=== PATIENT | male | born 1940 | race Caucasian/White ===

== ENCOUNTER 2021-01-14 23:11 | Observation (INO) | payer MEDICARE ==
[2021-01-14] MEDS ORDERED: Albuterol 0.083% 2.5 MG/3 ML Neb Soln NEB ONE (23:14)
[2021-01-14] MEDS ORDERED: Ipratropium 0.02% 0.5 MG/2.5 ML Neb Soln NEB ONE (23:15)
--- NOTE | 2021-01-14 23:33 | EDM.PDOC ---
ED HPI GENERAL MEDICAL PROBLEM - General Chief Complaint: Respiratory Problem Stated Complaint: AMBULANCE Time Seen by Provider: 01/14/21 23:30 Source of Information: Reports: Patient, EMS History Limitations: Reports: No Limitations - History of Present Illness INITIAL COMMENTS - FREE TEXT/NARRATIVE: Patient is a unfortunate 80-year-old male who presents emerged part today with complaint of shortness of breath. The patient reports that he was in his normal state of health until 4 days ago when he reports that he started having increasing cough and shortness of breath. The patient reports that 2 days ago he went to the clinic and was diagnosed with pneumonia he reports that at that time he was placed on amoxicillin and Zithromax. The patient reports that he was started feeling a little bit better and then this evening his shortness of breath worsen reports he took multiple breathing treatments this evening with no improvement in symptoms so became concerned and called EMS who arrived at the house and noted he was 91% on room air, the patient was placed on oxygen and his oxygen saturation promptly improved he reported an improvement in his dyspnea with oxygen therapy only and the patient was transported to the emergency department for further evaluation, upon arrival to the emergency department the patient is not retracting or using any accessory muscles he is mildly tachypneic and has diffuse end expiratory wheezing in the lower bases bilaterally the patient reports he was tested for Covid 2 days ago was negative, he also reports that he has been vaccinated against Covid - Related Data Allergies Allergy/AdvReac Type Severity Reaction Status Date / Time No Known Allergies Allergy Verified 01/14/21 23:32 ED ROS GENERAL - Review of Systems Review Of Systems: See Below Constitutional: Denies: Fever, Chills Respiratory: Reports: Shortness of Breath, Wheezing, Cough, Sputum ED EXAM, GENERAL - Physical Exam Exam: See Below Exam Limited By: No Limitations General Appearance: Alert, WD/WN, Mild Distress Neck: Normal Inspection, Supple, Non-Tender, Full Range of Motion Respiratory/Chest: No Respiratory Distress, No Accessory Muscle Use, Chest Non- Tender, Wheezing (Mild end expiratory bibasilar) Cardiovascular: Normal Peripheral Pulses, Regular Rate, Rhythm, No Edema, No Gallop, No JVD, No Murmur, No Rub GI/Abdominal: Normal Bowel Sounds, Soft, Non-Tender, No Organomegaly, No Distention, No Abnormal Bruit, No Mass Back Exam: Normal Inspection, Full Range of Motion, NT Extremities: Normal Inspection, Normal Range of Motion, Non-Tender, Normal Capillary Refill, No Pedal Edema Neurological: Alert, Oriented Skin Exam: Warm, Dry, Intact Course - Vital Signs Text/Narrative:: Case was discussed with Dr. Sheehan who asks that we give Solu-Medrol and observe the patient for several more hours and reevaluate Case was discussed again with Dr. Sheehan, the patient is above the normal oxygen requirements and has received Solu-Medrol and multiple neb treatments the patient was placed into observation Last Recorded V/S: Last Vital Signs Temp 97.3 F 01/14/21 23:20 Pulse 94 01/15/21 01:01 Resp 18 01/15/21 01:01 BP 130/68 01/15/21 01:01 Pulse Ox 91 L 01/15/21 01:01 - Orders/Labs/Meds Orders: Active Orders 24 hr Category Date Time Status RT Aerosol Therapy [RC] ASDIRECTED Care 01/14/21 23:14 Active RT Aerosol Therapy [RC] ASDIRECTED Care 01/15/21 00:18 Active RT Aerosol Therapy [RC] ASDIRECTED Care 01/15/21 02:13 Active RT Post Treatment Assessment [RC] Click to Edit Care 01/14/21 23:15 Active RT Pre-Treatment Assessment [RC] Click to Edit Care 01/14/21 23:15 Active CULTURE BLOOD [BC] Stat Lab 01/14/21 23:20 Results CULTURE BLOOD [BC] Stat Lab 01/14/21 23:30 Received UA RFX HELIO AND CULT IF INDIC [URIN] Stat Lab 01/14/21 23:15 Ordered Sodium Chloride 0.9% [Saline Flush] Med 01/14/21 23:15 Active 10 ml FLUSH ASDIRECTED PRN Blood Culture x2 Reflex Set [OM.PC] Stat Oth 01/14/21 23:16 Ordered Saline Lock Insert [OM.PC] Stat Oth 01/14/21 23:15 Ordered Medication Orders Sodium Chloride (Sodium Chloride 0.9% 10 Ml Syringe) 10 ml FLUSH ASDIRECTED PRN PRN Reason: Keep Vein Open Last Admin: 01/15/21 01:35 Dose: 10 ml Documented by: Admin: 01/14/21 23:45 Dose: 10 ml Documented by: Admin: 01/14/21 23:42 Dose: 10 ml Documented by: [email or web address] Labs: Laboratory Tests 01/14/21 01/14/21 01/14/21 Range/Units 23:20 23:20 23:20 WBC 11.2 H (5.0-10.0) 10^3/uL RBC 4.63 (4.6-6.2) 10^6/uL Hgb 14.4 (14.0-18.0) g/dL Hct 42.5 (40.0-54.0) % MCV 91.8 (80-100) fL MCH 31.1 (27.0-34.0) pg MCHC 33.9 (33.0-35.0) g/dL Plt Count 233 (150-450) 10^3/uL Neut % (Auto) 89.1 H (42.2-75.2) % Lymph % (Auto) 2.9 L (20.5-50.1) % Alcorn % (Auto) 6.2 (2-8) % Eos % (Auto) 1.6 (1.0-3.0) % Baso % (Auto) 0.2 (0.0-1.0) % ABG pH (7.35-7.45) ABG pCO2 (35-45) mmHg ABG pO2 (70-100) mmHg ABG HCO3 (22-26) mmol/L ABG O2 Saturation (95-100) % ABG Base Excess ((-2)-(+3)) mmol/L Tino Test O2 Delivery Device Sodium 137 (136-145) mmol/L Potassium 3.6 (3.5-5.1) mmol/L Chloride 99 (98-107) mmol/L Carbon Dioxide 31 (21-32) mmol/L Anion Gap 10.6 (7-13) mEq/L BUN 15 (7-18) mg/dL Creatinine 0.97 (0.70-1.30) mg/dL Est Cr Clr Drug Dosing 66.85 mL/min Estimated GFR (MDRD) > 60 BUN/Creatinine Ratio 15.5 (No establ ref range) Glucose 108 H (70-99) mg/dL Lactic Acid (0.4-2.0) mmol/L Calcium 8.3 L (8.5-10.1) mg/dL Total Bilirubin 0.4 (0.2-1.0) mg/dL AST 19 (15-37) U/L ALT 39 (16-63) U/L Alkaline Phosphatase 58 (46-116) U/L Troponin I High Sens 10 (<=76) pg/mL B-Natriuretic Peptide 21 (0-100) pg/ml Total Protein 6.0 L (6.4-8.2) g/dL Albumin 2.6 L (3.4-5.0) g/dL Globulin 3.4 Albumin/Globulin Ratio 0.76 SARS-CoV-2 RNA (JASWINDER) Negative (NEGATIVE) 01/14/21 01/15/21 Range/Units 23:20 01:10 WBC (5.0-10.0) 10^3/uL RBC (4.6-6.2) 10^6/uL Hgb (14.0-18.0) g/dL Hct (40.0-54.0) % MCV (80-100) fL MCH (27.0-34.0) pg MCHC (33.0-35.0) g/dL Plt Count (150-450) 10^3/uL Neut % (Auto) (42.2-75.2) % Lymph % (Auto) (20.5-50.1) % Alcorn % (Auto) (2-8) % Eos % (Auto) (1.0-3.0) % Baso % (Auto) (0.0-1.0) % ABG pH 7.46 H (7.35-7.45) ABG pCO2 43 (35-45) mmHg ABG pO2 71 (70-100) mmHg ABG HCO3 30.0 H (22-26) mmol/L ABG O2 Saturation 93 L (95-100) % ABG Base Excess 6 H ((-2)-(+3)) mmol/L Tino Test Positive O2 Delivery Device Nasal cannula Sodium (136-145) mmol/L Potassium (3.5-5.1) mmol/L Chloride (98-107) mmol/L Carbon Dioxide (21-32) mmol/L Anion Gap (7-13) mEq/L BUN (7-18) mg/dL Creatinine (0.70-1.30) mg/dL Est Cr Clr Drug Dosing mL/min Estimated GFR (MDRD) BUN/Creatinine Ratio (No establ ref range) Glucose (70-99) mg/dL Lactic Acid 0.7 (0.4-2.0) mmol/L Calcium (8.5-10.1) mg/dL Total Bilirubin (0.2-1.0) mg/dL AST (15-37) U/L ALT (16-63) U/L Alkaline Phosphatase (46-116) U/L Troponin I High Sens (<=76) pg/mL B-Natriuretic Peptide (0-100) pg/ml Total Protein (6.4-8.2) g/dL Albumin (3.4-5.0) g/dL Globulin Albumin/Globulin Ratio SARS-CoV-2 RNA (JASWINDER) (NEGATIVE) Meds: Medications Generic Name Dose Route Start Last Admin Trade Name Freq PRN Reason Stop Dose Admin Sodium Chloride 10 ml 01/14/21 23:15 01/15/21 01:35 Sodium Chloride 0.9% 10 Ml Syringe FLUSH 10 ml ASDIRECTED PRN Administration Keep Vein Open Discontinued Medications Generic Name Dose Route Start Last Admin Trade Name Freq PRN Reason Stop Dose Admin Albuterol 1.25 mg 01/14/21 23:14 01/14/21 23:22 Albuterol 0.083% 2.5 Mg/3 Ml Neb Soln [facility] 01/14/21 23:15 2.5 mg ONETIME ONE Administration Albuterol/Ipratropium 3 ml 01/15/21 00:18 01/15/21 00:25 Albuterol/Ipratropium 3.0-0.5 Mg/3 Ml Neb Soln [facility] 01/15/21 00:19 3 ml ONETIME ONE Administration Albuterol/Ipratropium 3 ml 01/15/21 02:12 01/15/21 02:17 Albuterol/Ipratropium 3.0-0.5 Mg/3 Ml Neb Soln [facility] 01/15/21 02:13 3 ml ONETIME ONE Administration Ipratropium [place] 0.5 mg 01/14/21 23:15 01/14/21 23:20 Ipratropium 0.02% 0.5 Mg/2.5 Ml Neb Soln NEB 01/14/21 23:16 Not Given ONETIME ONE Methylprednisolone Sodium Succinate 125 mg 01/15/21 01:27 01/15/21 01:34 Methylprednisolone Sodium Succinate 125 Mg/2 Ml Sdv IVPUSH 01/15/21 01:28 125 mg ONETIME ONE Administration Departure - Departure Time of Disposition: 03:31 Disposition: Refer to Observation Clinical Impression: COPD exacerbation - Discharge Information *PRESCRIPTION DRUG MONITORING PROGRAM REVIEWED*: No *COPY OF PRESCRIPTION DRUG MONITORING REPORT IN PATIENT VITOR: No Forms: ED Department Discharge Sepsis Event Note (ED) - Focused Exam Vital Signs: Vital Signs Temp Pulse Resp BP Pulse Ox 01/15/21 01:01 94 18 130/68 91 L 01/14/21 23:20 97.3 F 95 30 H 113/61 93 L - My Orders Last 24 Hours: My Active Orders 01/14/21 23:14 RT Aerosol Therapy [RC] ASDIRECTED 01/14/21 23:15 RT Post Treatment Assessment [RC] Click to Edit RT Pre-Treatment Assessment [RC] Click to Edit UA RFX HELIO AND CULT IF INDIC [URIN] Stat Sodium Chloride 0.9% [Saline Flush] 10 ml FLUSH ASDIRECTED PRN Saline Lock Insert [OM.PC] Stat 01/14/21 23:16 Blood Culture x2 Reflex Set [OM.PC] Stat 01/14/21 23:20 CULTURE BLOOD [BC] Stat 01/14/21 23:30 CULTURE BLOOD [BC] Stat 01/15/21 00:18 RT Aerosol Therapy [RC] ASDIRECTED 01/15/21 02:13 RT Aerosol Therapy [RC] ASDIRECTED - Assessment/Plan Last 24 Hours: My Active Orders 01/14/21 23:14 RT Aerosol Therapy [RC] ASDIRECTED 01/14/21 23:15 RT Post Treatment Assessment [RC] Click to Edit RT Pre-Treatment Assessment [RC] Click to Edit UA RFX HELIO AND CULT IF INDIC [URIN] Stat Sodium Chloride 0.9% [Saline Flush] 10 ml FLUSH ASDIRECTED PRN Saline Lock Insert [OM.PC] Stat 01/14/21 23:16 Blood Culture x2 Reflex Set [OM.PC] Stat 01/14/21 23:20 CULTURE BLOOD [BC] Stat 01/14/21 23:30 CULTURE BLOOD [BC] Stat 01/15/21 00:18 RT Aerosol Therapy [RC] ASDIRECTED 01/15/21 02:13 RT Aerosol Therapy [RC] ASDIRECTED
[2021-01-14] MEDS: Sodium Chloride 0.9% 10 ML Syringe FLUSH PRN ×2 (23:42→23:45)
[2021-01-14 23:45] LABS: ANION GAP 10.6 mEq/L (7-13); CHLORIDE,CL 99 mmol/L (98-107); SODIUM,NA 137 mmol/L (136-145)
[2021-01-15] MEDS ORDERED: Albuterol/Ipratropium 3.0-0.5 MG/3 ML Neb Soln NEB ONE ×2 (00:18→02:12)
--- NOTE | 2021-01-15 00:22 | CR ---
PROCEDURE INFORMATION: Exam: XR Chest Exam date and time: 01/14/2021 11:54 PM Age: 80 years old Clinical indication: Cough and shortness of breath and other: HX copd TECHNIQUE: Imaging protocol: XR of the chest. Views: 2 views. COMPARISON: No relevant prior studies available. FINDINGS: Lungs: The lungs are hyperinflated. Bibasilar linear opacities likely represent scarring or discoid atelectasis. Diffuse bilateral fine reticular pulmonary opacities. Possible patchy superimposed opacities in left mid lung. Pleural spaces: Unremarkable. No pleural effusion. No pneumothorax. Heart/Mediastinum: Heart size is within normal limits. Tortuous, atherosclerotic thoracic aorta. Bones/joints: No evidence of acute osseous abnormality. IMPRESSION: Findings are compatible with COPD. Possible superimposed acute airspace disease in the left lung.
[2021-01-15 01:23] LABS: O2 DELIVERY DEVICE NASAL CANNULA
[2021-01-15 01:24] LABS: ALLEN TEST POSITIVE; BASE EXCESS ARTERIAL 6 mmol/L ((-2)-(+3)); O2 SATURATION ARTERIAL 93 % (95-100); PCO2 ARTERIAL 43 mmHg (35-45); PO2 ARTERIAL 71 mmHg (70-100)
[2021-01-15] MEDS ORDERED: methylPREDNISolone Sodium Succinate 125 MG/2 ML SDV IVPUSH ONE (01:27)
[2021-01-15] MEDS: Sodium Chloride 0.9% 10 ML Syringe FLUSH PRN (01:35)
--- NOTE | 2021-01-15 04:00 | PCM.SN.2 ---
- Free Text/Narrative Note: START OF DOCTOR EMAMIS HISTORY AND PHYSICAL / CONSULTATION NOTE Chief Complaint: Shortness of breath History of Present Illness: The patient is a 72-year-old male who presents with chief complaint of dyspnea. He states he started exhibiting dyspnea approximately 3 weeks prior to hospitalization. At that point time he sought medical care and received prescription for prednisone taper. He indicates that he had a recurrence of dyspnea 2 days prior to hospitalization. At that point time he sought treatment and received prescription for antibiotics. Since that time he developed fever, rigors, cough productive of white sputum, wheeze. He denies nausea, vomiting, abdominal pain, diarrhea, myalgia, anosmia, dysgeusia. Upon questioning he indicates that he is an minor bipedal edema secondary to prednisone. Patient has known history of COPD for which she is O2 dependent 2 L however over the last couple of days he has had to increase his oxygen demand to 4 L/min. He presents for further evaluation Surgical History: Right inguinal herniorrhaphy, umbilical herniorrhaphy, surgery for small bowel obstruction Family History: Cancer, stroke, diabetes Social History: Tobacco: Former smoker Alcohol: Rare Caffeine: Coffee Drugs: Never Allergies: No known drug allergies Code Status: DNR, DNI Pertinent Laboratory Results / Pertinent Radiology Results / Pertinent Diagnostic Results / Pertinent Vital Signs: Blood pressure 130/68, pulse 94, respiration 18, temperature 97.3 degrees, 91% on supplemental oxygen, white blood cell 11.2 Physical Examination: General: -Alert -No acute distress -No dyspnea -No tachypnea Head: -Atraumatic -Normocephalic Eyes: -Pupils equally round and reactive to light and accommodation -Extraocular muscles intact Neurological: -Cranial nerves II-XII intact Neck: -No jugular venous distention -No thyromegaly -No cervical lymphadenopathy Heart: -Regular rate -Regular rhythm -No murmurs -No gallops -No rubs Lungs: -No wheeze -No rhonchi -No rales -Very distant breath sounds bilaterally Abdomen: -Normal bowel sounds in all four quadrants -No rebound -No guarding -No tenderness Extremities: -2/4 pulse in all four extremities -No clubbing -No cyanosis -No edema -No calf tenderness present bilaterally -Negative Homans sign bilaterally Musculoskeletal: -5/5 bilateral upper extremity strength -5/5 bilateral lower extremity strength -Sensorium of bilateral upper extremities are equal and intact -Sensorium of bilateral lower extremities are equal and intact Additional Details / Additional Findings / Exceptions / Miscellaneous: Assessment / Plan: COPD exacerbation. Patient typically O2 dependent 2 L. DuoNeb every 4 hours + Medrol 60 mg IV q. hours plus doxycycline 1 mg p.o. twice daily History of atrial fibrillation GI prophylaxis. Protonix 40 mg p.o. daily DVT prophylaxis. Lovenox 40 mg subcutaneously Disposition: Anticipate discharge within 24 to 36 hours. At the time of admission, the patient's home occasions were pending input to the EMR/BHR system. Once their input, they will be reviewed and reconciled END OF DOCTOR EMAMIS HISTORY AND PHYSICAL / CONSULTATION NOTE
[2021-01-15] MEDS ORDERED: Sodium Chloride 0.9% 10 ML Syringe FLUSH PRN (04:03)
[2021-01-15] MEDS ORDERED: Acetaminophen 325 MG Tab PO PRN (04:03)
[2021-01-15] MEDS ORDERED: Ondansetron 4 MG/2 ML SDV IVPUSH PRN (04:03)
[2021-01-15] MEDS: methylPREDNISolone Sodium Succinate 40 MG/1 ML SDV IVPUSH SCH ×2 (04:30→13:01)
[2021-01-15] MEDS: Doxycycline Monohydrate 100 MG Cap PO SCH ×2 (04:30→09:33)
[2021-01-15] MEDS ORDERED: Pantoprazole 40 MG Tab.CR PO SCH (06:00)
[2021-01-15] MEDS: Albuterol/Ipratropium 3.0-0.5 MG/3 ML Neb Soln NEB SCH ×3 (06:49→16:23)
--- NOTE | 2021-01-15 07:01 | PCM.SN.2 ---
- Free Text/Narrative Note: START OF DOCTOR MANOLOMIS PROGRESS NOTE Subjective: The patient currently rates his respiratory status as a 5 out of 10 of 10 is baseline. Since my last encounter with him, he denies fever, rigors, nausea, vomiting, cough, wheeze, abdominal pain, chest pain. I explained to the patient his current medical condition and plan of care and I have answered all his questions Objective: General: -Alert -No acute distress -No dyspnea -No tachypnea Heart: -Regular rate -Regular rhythm -No murmurs -No gallops -No rubs Lungs: -No wheeze -No rhonchi -No rales -Distant breath sounds bilaterally Abdomen: -Normal bowel sounds in all four quadrants -No rebound -No guarding -No tenderness Extremities: -2/4 pulse in all four extremities -No clubbing -No cyanosis -No edema Additional Details / Additional Findings / Exceptions / Miscellaneous: Pertinent Laboratory Results / Pertinent Radiology Results / Pertinent Diagnostic Results / Pertinent Vital Signs: Heart rate 104, blood pressure 143/667, patient saturating 94% on 4 L Assessment / Plan: COPD exacerbation. Patient typically O2 dependent 2 L. DuoNeb every 4 hours + Medrol 60 mg IV q. hours plus doxycycline 1 mg p.o. twice daily plus Singulair 10 mg p.o. daily History of atrial fibrillation. [place] XR 240 mg p.o. daily Hypertension. Hydrochlorothiazide 12.5 mg p.o. daily plus [place]ort XR 240 mg p.o. daily History of prostate cancer, status post prostatectomy, status post radiation therapy. Outpatient monitoring with his primary care physician GI prophylaxis. Protonix 40 mg p.o. daily DVT prophylaxis. Lovenox 40 mg subcutaneously Disposition: Anticipate discharge within 24 hours. I will reassess the patient later today o n this date of January 15, 2021 to determine whether he may be a candidate for discharge END OF DOCTOR MANOLOMIS PROGRESS NOTE
[2021-01-15] MEDS ORDERED: Montelukast 10 MG Tab**OWN MED PO SCH (09:00)
[2021-01-15] MEDS ORDERED: Hydrochlorothiazide 25 MG Tab PO SCH (09:00)
[2021-01-15] MEDS ORDERED: HYDROCHLOROTHIAZIDE 12.5 MG PO SCH (09:00)
[2021-01-15] MEDS ORDERED: DILTIAZEM 240 MG PO SCH (09:00)
[2021-01-15] MEDS ORDERED: Montelukast 10 MG Tab PO SCH (09:00)
[2021-01-15] MEDS ORDERED: Enoxaparin 40 MG/0.4 ML Syringe SUBCUT SCH (09:00)
[2021-01-15] MEDS ORDERED: Diltiazem 240 MG Cap.ER PO SCH (09:00)
--- NOTE | 2021-01-15 16:05 | PCM.SN.2 ---
- Free Text/Narrative Note: START OF DOCTOR EMAMIS DISCHARGE SUMMARY Date of Admission: January 15, 2021 Date of Discharge: 4:03 PM on January 15, 2021 Primary Diagnosis: COPD exacerbation, patient typically O2 dependent at 2 L Secondary Diagnosis: History of atrial fibrillation Hypertension History of prostate cancer, status post prostatectomy, status post radiation therapy Consultations: None Condition on Discharge: Fair Disposition: The patient will be vies follow-up with his primary care physician or with a provider as directed and to follow-up with him or her regarding monitoring of his history of prostate cancer The patient is advised follow-up with pulmonology within 1 month of discharge for diagnosis of COPD Discharge Medications: K-Dur 20 McCugh p.o. daily Protonix 40 mg p.o. daily. Quantity 15. 0 refills. This is for GI prophylaxis while the patient is taking prednisone and it is not for dyspepsia/GERD Singular 10 mg p.o. daily Hydrochlorothiazide 12.5 mg p.o. daily Proventil HFA: 90 mg/spray: 2 puffs every 4 hours as needed shortness of breath/wheeze. Quantity 1. 0 refills Prednisone 10 mg p.o.: 5 tabs daily x3 days then 4 tabs daily x3 days then 3 tabs daily x3 days then 2 tabs daily x3 days then 1 tab daily x3 days. Quantity sufficient. 0 refills END OF DOCTOR EMAMIS DISCHARGE SUMMARY
== END 2021-01-15 17:00 | disposition home or self-care (01) ==
LOC: DL.ED 23:11 → DL.MS 01-15 03:40
PROVIDERS: ADMIT Internal Medicine; ATTEND Internal Medicine
DX: J44.1 Chronic obstructive pulmonary disease with (acute) exacerbation (principal); I10 Essential (primary) hypertension; Z20.822 Contact with and (suspected) exposure to COVID-19; Z99.81 Dependence on supplemental oxygen; Z85.46 Personal history of malignant neoplasm of prostate; Z79.899 Other long term (current) drug therapy; Z87.891 Personal history of nicotine dependence; Z86.79 Personal history of other diseases of the circulatory system
CPT/HCPCS: 36415; 36600; 71046; 80053; 81001; 82803; 83605; 83880; 84484; 85025; 87040; 93005; 94640; A9270; J2920; J2930; U0002; 99285-25; J7613-GY; J7620-GY

== ENCOUNTER 2021-10-03 12:31 | Inpatient (IN) | payer MEDICARE ==
[2021-10-03] MEDS ORDERED: Sodium Chloride 0.9% 1,000 ML IV ONE (13:06)
[2021-10-03] MEDS ORDERED: cefTRIAXone 2 GM in Sodium Chloride 0.9% 100 ML IV ONE (13:18)
[2021-10-03] MEDS ORDERED: Ipratropium 0.02% 0.5 MG/2.5 ML Neb Soln NEB ONE (13:19)
[2021-10-03] MEDS: Sodium Chloride 0.9% 10 ML Syringe FLUSH PRN ×2 (13:53→18:32)
[2021-10-03 14:01] LABS: ANION GAP 10.3 mEq/L (7-13); CHLORIDE,CL 102 mmol/L (98-107); SODIUM,NA 142 mmol/L (136-145)
[2021-10-03 14:02] LABS: CORONAVIRUS COVID-19 NAA NEGATIVE (NEGATIVE)
[2021-10-03] MEDS ORDERED: Iopamidol 612 MG/ML 100 ML Bottle IVPUSH ONE (16:00)
[2021-10-03] MEDS ORDERED: Morphine 2 MG/ML SYRINGE IVPUSH PRN ×2 (17:51→17:59)
[2021-10-03] MEDS ORDERED: Acetaminophen 325 MG Tab PO PRN (17:52)
[2021-10-03] MEDS ORDERED: Docusate Sodium 100 MG Cap PO PRN (17:52)
[2021-10-03] MEDS ORDERED: Magnesium Hydroxide 400 MG/5 ML Susp 30 ML Cup PO PRN (17:52)
[2021-10-03] MEDS ORDERED: Albuterol/Ipratropium 3.0-0.5 MG/3 ML Neb Soln NEB PRN (17:52)
[2021-10-03] MEDS ORDERED: Acetaminophen/HYDROcodone 325-5 MG Tab PO PRN (17:52)
[2021-10-03] MEDS ORDERED: Ondansetron 4 MG/2 ML SDV IVPUSH PRN (17:52)
[2021-10-03] MEDS ORDERED: Polyethylene Glycol 3350 Powder 17 GM Packet PO PRN (17:52)
[2021-10-03] MEDS ORDERED: Bisacodyl 5 MG Tab PO PRN (17:52)
[2021-10-03] MEDS ORDERED: hydrALAZINE 20 MG/ML SDV IVPUSH PRN (17:56)
[2021-10-03] MEDS ORDERED: 50% Dextrose in Water 50 ML Syringe IVPUSH PRN (17:56)
[2021-10-03] MEDS ORDERED: Glucagon,Human Recombinant 1 MG Vial IM PRN (17:56)
[2021-10-03] MEDS ORDERED: Codeine/Promethazine 10-6.25 MG/5 ML Syrup 5 ML UD Cup PO PRN (17:57)
[2021-10-03] MEDS ORDERED: Magnesium Sulfate/Water 2 GM in Premix Bag 1 BAG IV ONE (18:10)
[2021-10-03] MEDS ORDERED: VANCOMYCIN IV SCH (18:15)
[2021-10-03] MEDS ORDERED: SODIUM CHLORIDE 0.9% IV SCH (18:15)
[2021-10-03] MEDS ORDERED: AMINOPHYLLINE IV ONE (18:30)
[2021-10-03] MEDS ORDERED: SODIUM CHLORIDE 0.9% IV ONE (18:30)
[2021-10-03] MEDS ORDERED: WATER IV SCH ×2 (20:00)
[2021-10-03] MEDS ORDERED: DEXTROSE 5% IV SCH ×2 (20:00)
[2021-10-03] MEDS ORDERED: Potassium Chloride 20 MEQ in Premix Bag 1 BAG IV ONE ×2 (20:00→23:00)
[2021-10-03] MEDS ORDERED: Potassium Chloride 10 MEQ in Premix Bag 1 BAG IV PRN (20:00)
[2021-10-03] MEDS ORDERED: AMINOPHYLLINE IV SCH ×2 (20:00)
[2021-10-03] MEDS: methylPREDNISolone Sodium Succinate 125 MG/2 ML SDV IVPUSH SCH (20:06)
[2021-10-03] MEDS: Albuterol/Ipratropium 3.0-0.5 MG/3 ML Neb Soln INH SCH (20:07)
[2021-10-03] MEDS: Formoterol/Mometasone 200-5 MCG 8.8 GM Inhaler IH SCH (20:09)
[2021-10-03] MEDS: Diltiazem 240 MG Cap.ER PO SCH (20:09)
[2021-10-03] MEDS: Piperacillin/Tazobactam 3.375 GM in Sodium Chloride 0.9% 100 ML IV SCH (20:11)
[2021-10-03] MEDS: diphenhydrAMINE 50 MG/ML SDV IVPUSH PRN (22:38)
[2021-10-03] MEDS: QUEtiapine 25 MG Tab PO PRN (22:38)
[2021-10-04] MEDS: Piperacillin/Tazobactam 3.375 GM in Sodium Chloride 0.9% 100 ML IV SCH ×5 (01:07→23:53)
[2021-10-04] MEDS: methylPREDNISolone Sodium Succinate 125 MG/2 ML SDV IVPUSH SCH ×5 (01:08→23:51)
[2021-10-04] MEDS: Albuterol/Ipratropium 3.0-0.5 MG/3 ML Neb Soln INH SCH ×2 (06:15→19:15)
[2021-10-04] MEDS: guaiFENesin/Dextromethorphan 100-10 MG/5 ML Soln 5 ML Cup PO PRN (06:23)
[2021-10-04 06:52] LABS: ANION GAP 9.3 mEq/L (7-13); CHLORIDE,CL 104 mmol/L (98-107); SODIUM,NA 140 mmol/L (136-145)
[2021-10-04] MEDS: Hydrochlorothiazide 25 MG Tab PO SCH (08:56)
[2021-10-04] MEDS: Diltiazem 240 MG Cap.ER PO SCH ×2 (08:56→21:05)
[2021-10-04] MEDS: Formoterol/Mometasone 200-5 MCG 8.8 GM Inhaler IH SCH ×2 (08:56→17:58)
[2021-10-04] MEDS: Insulin Lispro 100 Units/ML 3 ML Vial SUBCUT SCH ×3 (08:56→17:56)
[2021-10-04] MEDS: Sodium Chloride 0.9% 10 ML Syringe FLUSH PRN (08:57)
[2021-10-04] MEDS: Loperamide 2 MG Cap PO PRN (21:05)
[2021-10-04] MEDS ORDERED: guaiFENesin 600 MG Tab.ER PO ONE (22:09)
[2021-10-04] MEDS: QUEtiapine 25 MG Tab PO PRN (22:52)
[2021-10-04] MEDS: diphenhydrAMINE 50 MG/ML SDV IVPUSH PRN (22:53)
[2021-10-05] MEDS: methylPREDNISolone Sodium Succinate 125 MG/2 ML SDV IVPUSH SCH ×2 (05:36→16:31)
[2021-10-05] MEDS: Piperacillin/Tazobactam 3.375 GM in Sodium Chloride 0.9% 100 ML IV SCH ×3 (05:36→18:05)
[2021-10-05] MEDS: Loperamide 2 MG Cap PO PRN ×3 (05:36→16:25)
[2021-10-05] MEDS: Albuterol/Ipratropium 3.0-0.5 MG/3 ML Neb Soln INH SCH ×2 (07:53→19:07)
[2021-10-05] MEDS: Formoterol/Mometasone 200-5 MCG 8.8 GM Inhaler IH SCH ×2 (08:14→18:05)
[2021-10-05] MEDS: Insulin Lispro 100 Units/ML 3 ML Vial SUBCUT SCH ×3 (08:15→17:12)
[2021-10-05] MEDS ORDERED: Furosemide 20 MG/2 ML VIAL IVPUSH ONE ×2 (08:41→16:30)
[2021-10-05] MEDS: Sodium Chloride 0.9% 10 ML Syringe FLUSH PRN ×4 (09:13→18:05)
[2021-10-05 09:17] LABS: ANION GAP 12.8 mEq/L (7-13); CHLORIDE,CL 108 mmol/L (98-107); SODIUM,NA 146 mmol/L (136-145)
[2021-10-05] MEDS: Diltiazem 240 MG Cap.ER PO SCH ×2 (09:18→21:49)
[2021-10-05] MEDS: Saccharomyces Boulardii (Probiotic) 250 MG Cap PO SCH ×2 (09:18→21:50)
[2021-10-05] MEDS: Hydrochlorothiazide 25 MG Tab PO SCH (09:19)
[2021-10-05] MEDS ORDERED: 50% Dextrose in Water 50 ML Syringe IVPUSH PRN (10:01)
[2021-10-05] MEDS ORDERED: Glucagon,Human Recombinant 1 MG Vial IM PRN (10:01)
[2021-10-05 13:29] LABS: HEMOGLOBIN A1C 6.1 % (<5.7)
[2021-10-05] MEDS ORDERED: Insulin Glarg,Human.Rec.Analog 100 Unit/ML SUBCUT SCH (21:00)
[2021-10-05] MEDS ORDERED: Water For Injection, Sterile 20 ML ONE (21:29)
[2021-10-05] MEDS: guaiFENesin 600 MG Tab.ER PO SCH (21:50)
[2021-10-05] MEDS ORDERED: Ziprasidone Mesylate 20 MG Vial IM ONE (22:00)
[2021-10-05] MEDS: diphenhydrAMINE 50 MG/ML SDV IVPUSH PRN (22:02)
[2021-10-06] MEDS: methylPREDNISolone Sodium Succinate 125 MG/2 ML SDV IVPUSH SCH ×3 (00:24→16:13)
[2021-10-06] MEDS: Piperacillin/Tazobactam 3.375 GM in Sodium Chloride 0.9% 100 ML IV SCH ×4 (00:27→17:51)
[2021-10-06 06:28] LABS: ANION GAP 13.6 mEq/L (7-13); CHLORIDE,CL 109 mmol/L (98-107); SODIUM,NA 149 mmol/L (136-145)
[2021-10-06 06:36] LABS: HEMOGLOBIN A1C 6.1 % (<5.7)
[2021-10-06] MEDS: Loperamide 2 MG Cap PO PRN ×2 (07:31→14:45)
[2021-10-06] MEDS: Formoterol/Mometasone 200-5 MCG 8.8 GM Inhaler IH SCH ×2 (07:31→17:46)
[2021-10-06] MEDS: Sodium Chloride 0.9% 10 ML Syringe FLUSH PRN ×7 (07:32→22:39)
[2021-10-06] MEDS: Albuterol/Ipratropium 3.0-0.5 MG/3 ML Neb Soln INH SCH ×2 (07:42→19:26)
[2021-10-06] MEDS: Insulin Lispro 100 Units/ML 3 ML Vial SUBCUT SCH ×3 (08:20→17:45)
[2021-10-06] MEDS: Hydrochlorothiazide 25 MG Tab PO SCH (08:22)
[2021-10-06] MEDS: guaiFENesin 600 MG Tab.ER PO SCH ×2 (08:23→20:27)
[2021-10-06] MEDS: Saccharomyces Boulardii (Probiotic) 250 MG Cap PO SCH ×2 (08:23→20:27)
[2021-10-06] MEDS: Diltiazem 240 MG Cap.ER PO SCH ×2 (08:23→20:26)
[2021-10-06] MEDS: Insulin Glarg,Human.Rec.Analog 100 Unit/ML SUBCUT SCH ×2 (08:25→20:45)
[2021-10-06] MEDS ORDERED: Furosemide 40 MG/4 ML VIAL IVPUSH ONE ×3 (09:00→17:30)
[2021-10-06] MEDS ORDERED: Ziprasidone Mesylate 20 MG Vial IM PRN (21:00)
[2021-10-06] MEDS: diphenhydrAMINE 50 MG/ML SDV IVPUSH PRN (22:41)
[2021-10-06] MEDS ORDERED: Water For Injection, Sterile 20 ML ONE (22:59)
[2021-10-07] MEDS: methylPREDNISolone Sodium Succinate 125 MG/2 ML SDV IVPUSH SCH ×4 (00:03→23:25)
[2021-10-07] MEDS: Sodium Chloride 0.9% 10 ML Syringe FLUSH PRN ×2 (05:32)
[2021-10-07] MEDS: Piperacillin/Tazobactam 3.375 GM in Sodium Chloride 0.9% 100 ML IV SCH ×3 (05:33)
[2021-10-07] MEDS: Formoterol/Mometasone 200-5 MCG 8.8 GM Inhaler IH SCH ×4 (05:39→22:28)
[2021-10-07] MEDS: Albuterol/Ipratropium 3.0-0.5 MG/3 ML Neb Soln INH SCH ×3 (08:20→22:32)
[2021-10-07] MEDS: Saccharomyces Boulardii (Probiotic) 250 MG Cap PO SCH ×2 (08:21→20:47)
[2021-10-07] MEDS: Hydrochlorothiazide 25 MG Tab PO SCH (08:21)
[2021-10-07] MEDS: Levofloxacin 500 MG Tab PO SCH (08:22)
[2021-10-07] MEDS: Diltiazem 240 MG Cap.ER PO SCH ×2 (08:23→20:47)
[2021-10-07] MEDS: guaiFENesin 600 MG Tab.ER PO SCH ×2 (08:23→20:47)
[2021-10-07] MEDS ORDERED: methylPREDNISolone Sodium Succinate 125 MG/2 ML SDV ONE (08:30)
[2021-10-07] MEDS: Insulin Lispro 100 Units/ML 3 ML Vial SUBCUT SCH ×3 (08:35→17:12)
[2021-10-07] MEDS: Insulin Glarg,Human.Rec.Analog 100 Unit/ML SUBCUT SCH ×2 (08:37→20:48)
[2021-10-07] MEDS: Loperamide 2 MG Cap PO PRN ×2 (08:41→22:26)
[2021-10-07] MEDS ORDERED: Furosemide 40 MG/4 ML VIAL IVPUSH ONE (09:57)
[2021-10-07] MEDS ORDERED: Potassium Chloride 10 MEQ in Premix Bag 1 BAG IV SCH ×3 (10:00→19:00)
[2021-10-07] MEDS: Potassium Chloride Riders 50 ML IV SCH ×6 (10:38→23:07)
[2021-10-07] MEDS ORDERED: Menthol/Methyl Salicylate 85 GM Tube TOP PRN (13:47)
[2021-10-08] MEDS: Potassium Chloride Riders 50 ML IV SCH ×2 (00:46→03:12)
[2021-10-08] MEDS ORDERED: hydrALAZINE 20 MG/ML SDV IVPUSH PRN (08:01)
[2021-10-08] MEDS: guaiFENesin 600 MG Tab.ER PO SCH ×2 (08:56→21:00)
[2021-10-08] MEDS: Saccharomyces Boulardii (Probiotic) 250 MG Cap PO SCH ×2 (08:56→21:00)
[2021-10-08] MEDS: Formoterol/Mometasone 200-5 MCG 8.8 GM Inhaler IH SCH ×2 (08:56→18:55)
[2021-10-08] MEDS: Hydrochlorothiazide 25 MG Tab PO SCH (08:57)
[2021-10-08] MEDS: Diltiazem 240 MG Cap.ER PO SCH ×2 (08:57→21:01)
[2021-10-08] MEDS: Levofloxacin 500 MG Tab PO SCH (08:57)
[2021-10-08] MEDS: Insulin Glarg,Human.Rec.Analog 100 Unit/ML SUBCUT SCH ×2 (08:59→20:57)
[2021-10-08] MEDS: methylPREDNISolone Sodium Succinate 125 MG/2 ML SDV IVPUSH SCH ×2 (09:00→21:01)
[2021-10-08] MEDS: Loperamide 2 MG Cap PO PRN ×2 (09:08→16:23)
[2021-10-08] MEDS: Insulin Lispro 100 Units/ML 3 ML Vial SUBCUT SCH ×3 (09:09→17:58)
[2021-10-08] MEDS: Albuterol/Ipratropium 3.0-0.5 MG/3 ML Neb Soln INH SCH ×2 (09:18→18:55)
[2021-10-08] MEDS: Metoprolol Tartrate 5 MG/5 ML SDV IVPUSH PRN (10:01)
[2021-10-08 10:47] LABS: ANION GAP 11.9 mEq/L (7-13); CHLORIDE,CL 103 mmol/L (98-107); SODIUM,NA 148 mmol/L (136-145)
[2021-10-08] MEDS ORDERED: Furosemide 40 MG/4 ML VIAL IVPUSH ONE (11:25)
[2021-10-08] MEDS ORDERED: Potassium Chloride 10 MEQ in Premix Bag 1 BAG IV SCH ×2 (11:30→18:00)
[2021-10-08] MEDS: Potassium Chloride 20 MEQ in Premix Bag 1 BAG IV SCH ×3 (18:55→23:41)
[2021-10-08] MEDS ORDERED: Furosemide 20 MG/2 ML VIAL IVPUSH ONE (21:00)
[2021-10-09] MEDS: Albuterol/Ipratropium 3.0-0.5 MG/3 ML Neb Soln INH SCH (08:22)
[2021-10-09 09:00] LABS: ANION GAP 9.3 mEq/L (7-13); CHLORIDE,CL 104 mmol/L (98-107); SODIUM,NA 148 mmol/L (136-145)
[2021-10-09] MEDS: Saccharomyces Boulardii (Probiotic) 250 MG Cap PO SCH ×2 (09:00→20:44)
[2021-10-09] MEDS: Metoprolol Tartrate 5 MG/5 ML SDV IVPUSH PRN ×2 (09:30→22:03)
[2021-10-09] MEDS: methylPREDNISolone Sodium Succinate 125 MG/2 ML SDV IVPUSH SCH ×2 (09:47→20:52)
[2021-10-09] MEDS: Insulin Lispro 100 Units/ML 3 ML Vial SUBCUT SCH ×3 (09:54→17:46)
[2021-10-09] MEDS: Formoterol/Mometasone 200-5 MCG 8.8 GM Inhaler IH SCH ×2 (09:54→18:08)
[2021-10-09] MEDS: guaiFENesin 600 MG Tab.ER PO SCH ×2 (09:58→20:44)
[2021-10-09] MEDS: Diltiazem 240 MG Cap.ER PO SCH ×2 (10:00→20:44)
[2021-10-09] MEDS: Levofloxacin 500 MG Tab PO SCH (10:01)
[2021-10-09] MEDS: Hydrochlorothiazide 25 MG Tab PO SCH (10:03)
[2021-10-09] MEDS: Insulin Glarg,Human.Rec.Analog 100 Unit/ML SUBCUT SCH ×2 (10:06→20:50)
[2021-10-09] MEDS ORDERED: Potassium Chloride Riders 10 MEQ in Premix Bag 1 BAG IV SCH (12:00)
[2021-10-09] MEDS ORDERED: Furosemide 40 MG/4 ML VIAL IVPUSH ONE (12:00)
[2021-10-09] MEDS: Potassium Chloride Riders 10 MEQ in Premix Bag 1 BAG IV SCH ×9 (12:36→23:53)
[2021-10-09] MEDS ORDERED: Furosemide 20 MG/2 ML VIAL IVPUSH ONE (21:00)
[2021-10-09] MEDS: guaiFENesin/Dextromethorphan 100-10 MG/5 ML Soln 5 ML Cup PO PRN (23:27)
[2021-10-10] MEDS: Potassium Chloride Riders 10 MEQ in Premix Bag 1 BAG IV SCH ×4 (01:13→08:39)
[2021-10-10] MEDS: Albuterol/Ipratropium 3.0-0.5 MG/3 ML Neb Soln INH SCH ×2 (07:52→07:53)
[2021-10-10] MEDS: Formoterol/Mometasone 200-5 MCG 8.8 GM Inhaler IH SCH (08:50)
[2021-10-10] MEDS: Insulin Lispro 100 Units/ML 3 ML Vial SUBCUT SCH (08:51)
[2021-10-10] MEDS: Saccharomyces Boulardii (Probiotic) 250 MG Cap PO SCH (08:52)
[2021-10-10] MEDS: Insulin Glarg,Human.Rec.Analog 100 Unit/ML SUBCUT SCH (08:52)
[2021-10-10] MEDS: Levofloxacin 500 MG Tab PO SCH (08:52)
[2021-10-10] MEDS: methylPREDNISolone Sodium Succinate 125 MG/2 ML SDV IVPUSH SCH (08:52)
[2021-10-10] MEDS: Hydrochlorothiazide 25 MG Tab PO SCH (08:53)
[2021-10-10] MEDS: guaiFENesin 600 MG Tab.ER PO SCH (08:53)
[2021-10-10] MEDS: Diltiazem 240 MG Cap.ER PO SCH (08:53)
[2021-10-10 10:27] LABS: ANION GAP 9.7 mEq/L (7-13)
== END 2021-10-10 11:50 | disposition home or self-care (01) | DRG 871 ==
LOC: DL.ED 12:31 → DL.MS 15:11
PROVIDERS: ADMIT Internal Medicine; ATTEND Internal Medicine
DX: A41.9 Sepsis, unspecified organism (principal); J18.9 Pneumonia, unspecified organism; R09.02 Hypoxemia; J18.1 Lobar pneumonia, unspecified organism; J96.21 Acute and chronic respiratory failure with hypoxia; J96.22 Acute and chronic respiratory failure with hypercapnia; J44.1 Chronic obstructive pulmonary disease with (acute) exacerbation; M48.54XA Collapsed vertebra, not elsewhere classified, thoracic region, initial encounter for fracture; E87.0 Hyperosmolality and hypernatremia; J44.0 Chronic obstructive pulmonary disease with (acute) lower respiratory infection; Z20.822 Contact with and (suspected) exposure to COVID-19; I10 Essential (primary) hypertension; K21.9 Gastro-esophageal reflux disease without esophagitis; M85.80 Other specified disorders of bone density and structure, unspecified site; I48.91 Unspecified atrial fibrillation; E87.6 Hypokalemia; E80.6 Other disorders of bilirubin metabolism; E66.9 Obesity, unspecified; Z68.31 Body mass index [BMI] 31.0-31.9, adult; E11.65 Type 2 diabetes mellitus with hyperglycemia; T38.0X5A Adverse effect of glucocorticoids and synthetic analogues, initial encounter; G47.33 Obstructive sleep apnea (adult) (pediatric); Z99.89 Dependence on other enabling machines and devices; Z79.52 Long term (current) use of systemic steroids; Z79.899 Other long term (current) drug therapy; Z79.4 Long term (current) use of insulin; Z87.891 Personal history of nicotine dependence
CPT/HCPCS: 0240U; 36415; 71045; 71046; 71260; 80048; 80053; 80202; 82947; 83036; 83605; 83735; 84100; 84145; 85025; 86140; 87040; 87070; 87081; 87205; 87493; 93005; 93010; 94010; 94060; 94640; 96365; 97110-GO; 97110-GP; 97116-GP; 97161-GP; 97165-GO; 97530-GO; 99285; 99285-25; A9270-GY; J0696; J1200; J1815-GY; J1940; J2270; J2405; J2543; J2930; J3370; J3475; J3480; J3486; J3490; J7030; J7050; J7606; J7620-GY; Q9967

== ENCOUNTER 2021-11-03 02:48 | Emergency (ER) | payer MEDICARE ==
[2021-11-03 04:08] LABS: ANION GAP 7.5 mEq/L (7-13); CHLORIDE,CL 102 mmol/L (98-107); SODIUM,NA 142 mmol/L (136-145)
[2021-11-03 04:11] LABS: ESTIMATED GFR > 60
[2021-11-03] MEDS ORDERED: Iopamidol 612 MG/ML 100 ML Bottle IVPUSH ONE (04:25)
== END 2021-11-03 08:58 | disposition home or self-care (01) ==
LOC: DL.ED 02:48
DX: R10.12 Left upper quadrant pain (principal); J44.9 Chronic obstructive pulmonary disease, unspecified; E66.9 Obesity, unspecified; Z68.30 Body mass index [BMI] 30.0-30.9, adult; Z79.82 Long term (current) use of aspirin
CPT/HCPCS: 36415; 74177; 80053; 81003; 83605; 85025; 87040; 99284; Q9967; 99283